=== PATIENT | female | born 1940 ===

== ENCOUNTER 2019-11-14 23:58 | Inpatient (IN) | payer OTHER ==
[~2019-11-14] VITALS: Ht 154.9 cm; Wt 81.6 kg
[~2019-11-14 23:58] MED LIST: CALCIUM; CRESTOR10 MG; DONEPEZIL; EVISTA60 MG; LEXAPRO20 MG; PREVACID30 MG PO; ZANTAC300 MG PO; [UNRECOGNIZED DRUG - OTHER]; [UNRECOGNIZED DRUG - OTHER]
[2019-11-18] MEDS ORDERED: CEFDINIR300 MG PO (07:37)
== END 2019-11-18 15:13 | disposition home or self-care (01) | DRG 69 ==
LOC: ER 23:58 → SEC-K 11-15 15:00 → SURG 11-15 15:00
PROVIDERS: ADMIT Internal Medicine
PROC: B030ZZZ Magnetic Resonance Imaging (MRI) of Brain (ICD-10-PCS; principal; 2019-11-15)
PROC: BW28ZZZ Computerized Tomography (CT Scan) of Head (ICD-10-PCS; 2019-11-15)
DX: I67.82 Cerebral ischemia (principal); G91.2 (Idiopathic) normal pressure hydrocephalus; G31.89 Other specified degenerative diseases of nervous system; G93.89 Other specified disorders of brain; I10 Essential (primary) hypertension; F02.80 Dementia in other diseases classified elsewhere, unspecified severity, without behavioral disturbance, psychotic disturbance, mood disturbance, and anxiety
CPT/HCPCS: 70544

== ENCOUNTER 2020-11-20 14:12 | Emergency (ER) | payer OTHER ==
[~2020-11-20] VITALS: Ht 162.6 cm; Wt 68.0 kg
[~2020-11-20 14:12] MED LIST changes: +CEFDINIR300 MG PO
[2020-11-20] MEDS ORDERED: KEPPRA500 MG PO (14:19)
== END 2020-11-20 22:59 | disposition home or self-care (01) ==
LOC: ER 14:12
DX: K94.23 Gastrostomy malfunction (principal); G30.8 Other Alzheimer's disease; F02.80 Dementia in other diseases classified elsewhere, unspecified severity, without behavioral disturbance, psychotic disturbance, mood disturbance, and anxiety; Z74.01 Bed confinement status; Z03.818 Encounter for observation for suspected exposure to other biological agents ruled out

== ENCOUNTER 2021-03-15 18:35 | Inpatient (IN) | payer OTHER ==
[~2021-03-15] VITALS: Ht 167.6 cm; Wt 75.3 kg
[~2021-03-15 18:35] MED LIST changes: +KEPPRA500 MG PO
--- NOTE | 2021-03-15 19:04 | NUR ---
SE RECIBE PACIENTE FEMINA DE 81 ANOS DE EDAD POR PERSONAL DE AMBULANCIA. PARAMEDICOS REFIERE QUE LA TRAEN POR LA MISMA DE REMOVIO LA GASTROSTOMIA QUE TENIA INSERTADA. AL MOMETO EL AREA DE LA GASTRO NO SE OBSERVA LIMPIA Y NO PRESENTA ENROJECIMIENTO. FAMILIAR NO SE ENCUENTRA PRESENTE AL MOMENTO DE LA LLEGADA DE PACIENTE. SE UBICA EN AREA DE OBSERVACION RACHID NATALIA 13 CON BARANDAS ELEVADAS. PACIENTE DESORIENTADA X3. NO PRESENTA ULCERAS.
--- NOTE | 2021-03-15 19:06 | NUR ---
19:22 FAMILIAR REFIERE NO RECUERDA EL NOMBRE DE LOS MEDICAMENTOS QUE UTILIZA PACIENTE
--- NOTE | 2021-03-15 19:16 | NUR ---
SE REALIZA MUESTRAS DE AMAURI POR DANIELA RAYMOND BAJO MEDIDAS ASEPTICAS. SE ORIENTO A FAMILIAR DE PACIENTE SOBRE PROCEDIMIENTO. MUESTRAS SE ROTULAN Y SON ENVIADAS A LABORATORIO.
--- NOTE | 2021-03-15 20:22 | NUR ---
FAMILIAR DE PTE FIRMA CONSENTIMIENTO DE OPERACION. SE COLOCA EL MISMO CON EL RECORD DEL PTE.
--- NOTE | 2021-03-15 22:25 | NUR ---
SE RAAD MUESTRA DE PT, PTT, INR UTILIZANDO MEDIDAS ASEPTICAS. SE ADMINISTRA MEDICAMENTO A PTE AMENA ORDEN MEDICA.
--- NOTE | 2021-03-16 | NUR ---
SE RECIBE PTE ALERTA Y DESORIENTADA X3 PTE CON ALZHEIMER SIN ACOMPANANTE. SE RECIBE PTE CANALIZADA AREA HORTENCIA DE EDEMA Y DE ENROJECIMIENTO. PTE EN ESPERA DE CONSULTA CON .PTE SE MANTIENE BAJO OBSERVACION POR CAMBIOS.
--- NOTE | 2021-03-16 07:10 | NUR ---
SE RECIBE PTE FEMENINA DE 81 YRS ALERTA, CONCIENTE Y NO VERBALIZA .SHANTA SIN FAMILIAR PTE CON IVF'S PATENTE Y HORTENCIA DE EDEMA. SE LE OBSERVA PTE CON IVF'S PATENTE Y HORTENICA DE EDEMA. SE MANTIENE CONSULTADO CON EL TRISHA GALDAMEZ . LA CUAL SE MANTIENE NOTIFICADO. SE MANTIENE BAJO OBSERVACION .
[2021-03-17] MEDS ORDERED: PREDNISONE2.5 MG (08:01)
[2021-03-17] MEDS ORDERED: VIMPAT200 MG (08:01)
[2021-03-17] MEDS ORDERED: RIVASTIGMINE1 EACH (08:01)
== END 2021-03-19 20:51 | DRG 920 ==
LOC: ER 18:35 → CIR.AMB 03-16 08:39 → SURG 03-16 15:17 → O/R 03-16 15:17 → SURG 03-16 15:37
PROVIDERS: ADMIT Surgery; ATTEND Surgery
PROC: 3E0F7SF Introduction of Other Gas into Respiratory Tract, Via Natural or Artificial Opening (ICD-10-PCS; 2021-03-16)
PROC: 4A12X4Z Monitoring of Cardiac Electrical Activity, External Approach (ICD-10-PCS; 2021-03-16)
PROC: 0D20XUZ Change Feeding Device in Upper Intestinal Tract, External Approach (ICD-10-PCS; principal; 2021-03-17 17:15)
DX: T85.528A Displacement of other gastrointestinal prosthetic devices, implants and grafts, initial encounter (principal); N39.0 Urinary tract infection, site not specified; B96.29 Other Escherichia coli [E. coli] as the cause of diseases classified elsewhere; R13.10 Dysphagia, unspecified; G30.8 Other Alzheimer's disease; F02.80 Dementia in other diseases classified elsewhere, unspecified severity, without behavioral disturbance, psychotic disturbance, mood disturbance, and anxiety; Z74.01 Bed confinement status; Z20.822 Contact with and (suspected) exposure to COVID-19; R56.9 Unspecified convulsions

== ENCOUNTER 2021-04-03 16:12 | Inpatient (IN) | payer OTHER ==
[~2021-04-03] VITALS: Ht 162.6 cm; Wt 63.5 kg
[~2021-04-03 16:12] MED LIST changes: +PREDNISONE2.5 MG; +RIVASTIGMINE1 EACH; +VIMPAT200 MG
== END 2021-04-05 19:05 | DRG 395 ==
LOC: ER 16:12 → MEDJ 22:46 → SURH 04-04 16:30
PROVIDERS: ADMIT Internal Medicine; ATTEND Internal Medicine
PROC: 0D20XUZ Change Feeding Device in Upper Intestinal Tract, External Approach (ICD-10-PCS; principal; 2021-04-04)
DX: K94.23 Gastrostomy malfunction (principal); E86.9 Volume depletion, unspecified; G30.9 Alzheimer's disease, unspecified; F02.80 Dementia in other diseases classified elsewhere, unspecified severity, without behavioral disturbance, psychotic disturbance, mood disturbance, and anxiety; Z74.01 Bed confinement status; G40.909 Epilepsy, unspecified, not intractable, without status epilepticus